=== PATIENT | female | born 1985 | race Caucasian/White ===

== ENCOUNTER → 2016-08-13 | Outpatient (CLI) | payer BC | END | disposition home or self-care (01) | LOC: C.PAPS 09:29 | PROVIDERS: ATTEND Physician Assistant | DX: Z01.419 Encounter for gynecological examination (general) (routine) without abnormal findings (principal) ==

== ENCOUNTER → 2016-09-04 | Outpatient (CLI) | payer BC ==
[2016-09-04 12:18] LABS: BASO % 0.4 %; BASO ABS # 0.03 K/uL (0-0.2); COMPLETE YES; EOS % 2.1 %; HEMATOCRIT 43.8 % (37-47); IG% 0.3 %; LYMPH % 34.7 %; LYMPH ABS # 2.35 K/uL (1.2-3.4); MEAN CELL VOLUME 88.1 fL (80-100); MEAN CORPUSCULAR HEMOGLOBIN 27.4 pg (25-34); MEAN CORPUSCULAR HGB CONC 31.1 g/dl (32-36); MEAN PLATELET VOLUME 11.4 fL (7.4-10.4); MONO % 6.2 %; NEUT % 56.3 %; PLATELET COUNT 217 K/uL (130-400); RED BLOOD COUNT 4.97 M/uL (4.2-5.4); WHITE BLOOD COUNT 6.77 K/uL (4.8-10.8)
[2016-09-04 12:23] LABS: PARTIAL THROMBOPLASTIN RATIO 1.1; PROTHROMBIN TIME (PATIENT) 10.5 SECONDS (9.0-12.0)
[2016-09-04 12:34] LABS: AST/SGOT 13 U/L (15-37); BLOOD UREA NITROGEN 11 mg/dl (7-18); BUN/CREATININE RATIO 12.1 (10-20); CALCIUM 8.6 mg/dl (8.5-10.1); CARBON DIOXIDE 25 mmol/L (21-32); CHLORIDE 108 mmol/L (98-107); CHOLESTEROL 198 mg/dl (0-200); CREATININE 0.91 mg/dl (0.60-1.20); GLUCOSE 86 mg/dl (70-99); POTASSIUM 4.2 mmol/L (3.5-5.1); SODIUM 141 mmol/L (136-145)
[2016-09-04 12:44] LABS: ALB/GLOB RATIO 1.2 (0.9-2); ALKALINE PHOSPHATASE 70 U/L (45-117); ALT/SGPT 22 U/L (12-78); CHOLESTEROL/HDL RATIO 3.9; HDL CHOLESTEROL 51 mg/dl; LDL CHOLESTEROL CALCULATED 130 mg/dl; TRIGLYCERIDES 87 mg/dl (0-150); VERY LOW DENSITY LIPOPROT CALC 17 mg/dl
[2016-09-04 12:50] LABS: ESTIMATED AVERAGE GLUCOSE 117 mg/dl; HA1C FLAG Normal (Normal)
[2016-09-04 14:58] LABS: LYME DISEASE AB IGG NEG (NEG)
[2016-09-04 15:01] LABS: LYME DISEASE AB IGM NEG (NEG)
== END | disposition home or self-care (01) ==
LOC: C.LAB1850 10:35
PROVIDERS: ATTEND Internal Medicine
DX: Z00.00 Encounter for general adult medical examination without abnormal findings (principal); R53.83 Other fatigue; R23.8 Other skin changes

== ENCOUNTER → 2017-02-06 | Outpatient (CLI) | payer BC ==
[2017-02-06 16:32] LABS: HEMATOCRIT 41.1 % (37-47); MEAN CELL VOLUME 88.8 fL (80-100); MEAN CORPUSCULAR HEMOGLOBIN 28.5 pg (25-34); MEAN CORPUSCULAR HGB CONC 32.1 g/dl (32-36); PLATELET COUNT 216 K/uL (130-400); RED BLOOD COUNT 4.63 M/uL (4.2-5.4); WHITE BLOOD COUNT 9.48 K/uL (4.8-10.8)
[2017-02-07 07:02] LABS: ESTIMATED AVERAGE GLUCOSE 114 mg/dl; HA1C FLAG Normal (Normal)
== END | disposition home or self-care (01) ==
LOC: C.LAB1850 15:25
PROVIDERS: ATTEND Internal Medicine
DX: Z00.00 Encounter for general adult medical examination without abnormal findings (principal); R53.83 Other fatigue

== ENCOUNTER 2017-06-12 17:28 | Emergency (ER) | payer BC ==
[~2017-06-12] VITALS: Ht 167.6 cm; Wt 96.3 kg
[2017-06-12 17:40] VITALS: TEMP 36.9
[2017-06-12 18:32] VITALS: Ht 167.6 cm; Wt 96.3 kg
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
[2017-06-12 18:57] LABS: PTT PATIENT 28.3 SECONDS (21.0-31.0)
[2017-06-12 18:58] LABS: BASO % 0.3 %; BASO ABS # 0.02 K/uL (0-0.2); EOS % 1.8 %; EOS ABS # 0.14 K/uL (0-0.5); HEMATOCRIT 42.6 % (37-47); HEMOGLOBIN 14.2 g/dL (12.0-16.0); IG# 0.02 K/uL (0.00-0.02); LYMPH % 31.2 %; LYMPH ABS # 2.46 K/uL (1.2-3.4); MEAN CELL VOLUME 85.9 fL (80-100); MEAN CORPUSCULAR HEMOGLOBIN 28.6 pg (25-34); MEAN CORPUSCULAR HGB CONC 33.3 g/dl (32-36); MEAN PLATELET VOLUME 10.6 fL (7.4-10.4); MONO % 5.1 %; NEUT % 61.3 %; NEUT ABS # 4.85 K/uL (1.4-6.5); PLATELET COUNT 208 K/uL (130-400); RED CELL DISTRIBUTION WIDTH CV 13.2 % (11.5-14.5); RED CELL DISTRIBUTION WIDTH SD 41.3 fL (36.4-46.3); WHITE BLOOD COUNT 7.89 K/uL (4.8-10.8)
[2017-06-12 19:16] LABS: ALT/SGPT 24 U/L (12-78); AST/SGOT 15 U/L (15-37); BLOOD UREA NITROGEN 12 mg/dl (7-18); CALCIUM 8.9 mg/dl (8.5-10.1); CARBON DIOXIDE 26 mmol/L (21-32); CREATININE 0.98 mg/dl (0.60-1.20); GLUCOSE 89 mg/dl (70-99); LIPASE 164 U/L (73-393); POTASSIUM 3.6 mmol/L (3.5-5.1); SODIUM 137 mmol/L (136-145)
[2017-06-12 19:27] LABS: ALKALINE PHOSPHATASE 74 U/L (45-117); TOTAL PROTEIN 7.7 gm/dl (6.4-8.2)
--- NOTE | 2017-06-12 19:33 | DIAGNOSTIC IMAGING REPORT ---
HEAD WITHOUT CONTRAST (CT) CLINICAL HISTORY: 32 years-old Female presenting with numb/tingling hands/feet. TECHNIQUE: Multidetector CT imaging of the head was performed without the use of intravenous contrast. IV contrast: None. A dose lowering technique was used consistent with the principles of ALARA (as low as reasonably achievable). COMPARISON: None. CT DOSE (mGy.cm): The estimated cumulative dose is 537.48 mGy.cm. FINDINGS: Marine Equipment Preservation Inspector topogram: Unremarkable. Ventricles and sulci normal in size. Brain parenchyma normal in appearance with preserved martinez-white differentiation. No mass effect or midline shift. No hemorrhage or acute territorial infarct. No extra-axial fluid collection. Paranasal sinuses and mastoid air cells clear. Calvarium intact. IMPRESSION: 1. No acute intracranial abnormality. Electronically signed by: Joshua Lopez M.D. 06/12/2017 7:32 PM Dictated Date/Time: 06/12/2017 7:31 PM
--- NOTE | 2017-06-12 19:39 | DIAGNOSTIC IMAGING REPORT ---
CHEST ONE VIEW PORTABLE CLINICAL HISTORY: 32 years-old Female presenting with EVALUATE WEAKNESS. TECHNIQUE: Portable upright AP view of the chest was obtained. COMPARISON: None. FINDINGS: Cardiomediastinal silhouette normal. No focal opacity. No large effusion or pneumothorax. Osseous structures normal. Upper abdomen normal. IMPRESSION: 1. No acute cardiopulmonary disease. Electronically signed by: Joshua Lopez M.D. 06/12/2017 7:38 PM Dictated Date/Time: 06/12/2017 7:38 PM
[2017-06-12 19:43] VITALS: BP 121/69; PULSE 74; O2SAT 99
[2017-06-12 19:45] VITALS: O2SAT 99
== END 2017-06-12 20:05 | disposition home or self-care (01) ==
LOC: C.EDB 17:29 → C.EDA 20:05
DX: R20.0 Anesthesia of skin (principal); R20.2 Paresthesia of skin; F41.9 Anxiety disorder, unspecified; Z82.0 Family history of epilepsy and other diseases of the nervous system

== ENCOUNTER → 2017-07-15 | Outpatient (CLI) | payer BC | END | disposition home or self-care (01) | LOC: C.LAB1850 16:27 | PROVIDERS: ATTEND Internal Medicine | DX: E03.9 Hypothyroidism, unspecified (principal) ==

== ENCOUNTER → 2017-07-17 | Outpatient (CLI) | payer BC ==
[2017-07-17 17:24] LABS: BASO % 0.3 %; BASO ABS # 0.02 K/uL (0-0.2); EOS % 1.4 %; HEMATOCRIT 41.3 % (37-47); HEMOGLOBIN 13.5 g/dL (12.0-16.0); IG# 0.02 K/uL (0.00-0.02); LYMPH % 30.3 %; LYMPH ABS # 2.19 K/uL (1.2-3.4); MEAN CELL VOLUME 86.8 fL (80-100); MEAN CORPUSCULAR HEMOGLOBIN 28.4 pg (25-34); MEAN CORPUSCULAR HGB CONC 32.7 g/dl (32-36); MEAN PLATELET VOLUME 10.3 fL (7.4-10.4); MONO % 6.2 %; MONO ABS # 0.45 K/uL (0.11-0.59); NEUT % 61.5 %; NEUT ABS # 4.44 K/uL (1.4-6.5); PLATELET COUNT 227 K/uL (130-400); RED CELL DISTRIBUTION WIDTH CV 13.1 % (11.5-14.5); WHITE BLOOD COUNT 7.22 K/uL (4.8-10.8)
== END | disposition home or self-care (01) ==
LOC: C.LAB1850 16:11
PROVIDERS: ATTEND Obstetrics & Gynecology
DX: N92.0 Excessive and frequent menstruation with regular cycle (principal)

== ENCOUNTER 2019-05-06 07:30 | Inpatient (IN) ==
--- NOTE | 2019-05-05 17:59 | History and Physical Report ---
DATE OF ADMISSION: 05/06/2019 PREOPERATIVE DIAGNOSES: 1. Intrauterine at 39 and 6/7 weeks. 2. History of previous section for failure to progress, desires repeat. HISTORY: The patient is a 34-year-old white female 3, para 1-0-1-1 who presents to labor and delivery for elective repeat section. Her last was complicated by a very difficult section in 2015 at 42 weeks of labor to deliver a 9 pound 7 ounce male infant and this was in [place]. The baby it sounds like was wedged into the pelvis. The operative report was reviewed and it was a low transverse incision with a right-sided cervical extension. She had a long labor and she does not desire to repeat any of that. She actually had to go to sleep because of inappropriate anesthetic. The has essentially been uncomplicated. She did have a tick bite in April. She has been having twice weekly NSTs, which have been good. Her blood pressures have been fine. PAST OB AND BENEFITS COUNSELOR HISTORY: The patient has a history of a miscarriage and a history of a previous as noted above. ALLERGIES: CODEINE. MEDICATIONS: Calcium carbonate, levothyroxine and vitamin. PAST MEDICAL HISTORY: Anxiety, gastroesophageal reflux, history of a breast lump that was benign, history of a cardiac murmur noncontributory, history of hypothyroidism and history of recent tick bite. PAST SURGICAL HISTORY: delivery, a left lumpectomy, wisdom teeth removal and colonoscopy. FAMILY HISTORY: Noncontributory. GYNECOLOGIC HISTORY: Denies history of sexually transmitted diseases or BENEFITS COUNSELOR issues. PHYSICAL EXAMINATION: GENERAL: This is a well-developed, well-nourished white female in no acute distress. Weight is 233 pounds. VITAL SIGNS: Blood pressure 110/84. NECK: Supple without thyromegaly or lymphadenopathy. CHEST: Clear to auscultation bilaterally. CARDIOVASCULAR: Regular rate and rhythm without murmurs, gallops or rubs. BACK: Without costovertebral angle tenderness. ABDOMEN: Soft, gravid and nontender. EXTREMITIES: Show some trace edema, but are otherwise benign. LABORATORY DATA: Blood type O positive, antibody negative. Chlamydia and gonorrhea negative, rubella immune, RPR nonreactive, hepatitis B negative, HIV negative. Declined CF and SMA. Low risk panorama. Declined MSAFP, GTT x2 was normal, GBS negative. ASSESSMENT: Rody is a 34-year-old white female 3, para 1-0-1-1 with a history of failure to progress section requiring general anesthesia because of poor anesthetic and a cervical extension on the operative report. She presents for repeat section. The risks of the section were discussed with the patient including the risks of anesthesia, bleeding requiring transfusion, infection, poor wound healing, damage to surrounding structures including bowel, bladder, vessels, nerves and ureters with need for further surgery, hospitalization or intervention. We discussed the risk of any surgery including heart attack, blood clot, stroke or . Consent was reviewed and signed and procedure is planned for the morning of 05/06/2019.
[~2019-05-06 07:30] MED LIST: CEFAZOLIN 3000MG 65 ML IV SCH; CITRIC ACID/SODIUM CITRATE 15 ML UDC PO SCH
[2019-05-06] MEDS ORDERED: LACTATED RINGER'S 1,000 ML IV SCH ×2 (09:45→15:58)
[2019-05-06 09:46] LABS: Basophils # (auto) 0.02 K/uL (0-0.2); Basophils % (auto) 0.3 %; Eosinophils # (auto) 0.07 K/uL (0-0.5); Hematocrit (blood only) 36.2 % (37-47); Hemoglobin 11.1 g/dL (12.0-16.0); Immature Granulocytes # (auto) 0.04 K/uL (0.00-0.02); Immature Granulocytes % (auto) 0.6 %; Lymphocytes # (auto) 1.61 K/uL (1.2-3.4); Lymphocytes % (auto) 22.8 %; Mean Corpuscular Hemoglobin 25.2 pg (25-34); Mean Corpuscular Volume 82.3 fL (80-100); Mean Platelet Volume 11.6 fL (7.4-10.4); Monocytes # (auto) 0.36 K/uL (0.11-0.59); Monocytes % (auto) 5.1 %; Neutrophils # (auto) 4.95 K/uL (1.4-6.5); Neutrophils % (auto) 70.2 %; Platelet Count 167 K/uL (130-400); RDW Coefficient of Variation 15.9 % (11.5-14.5); RDW Standard Deviation 47.5 fL (36.4-46.3); White Blood Count 7.05 K/uL (4.8-10.8)
[2019-05-06 09:58] LABS: Mean Corpuscular Hgb Conc 30.7 g/dL (32-36)
[2019-05-06] MEDS ORDERED: MoRPHine SULFATE PF 1 MG/ML 10 ML AMP/VIAL ONE (11:12)
[2019-05-06] MEDS ORDERED: fentaNYL citrate 100 MCG/2 ML VIAL ONE (11:12)
--- NOTE | 2019-05-06 11:56 | Anesthesiology Consultation ---
Date of Service May 06, 2019 Assessment & Plan (1) Encounter for pre-operative examination: Chart Review Chart Review: Acceptable Risk for Surgery and Patient NOT seen in Pre Admission Testing Consults Requested none ASA ASA2 Proposed Anesthesia Anesthesia Type: Spinal (intrathecal narcotics) Risk / Benefits Reviewed With: PT / POA / Parent / Guardian, Accepts Plan and Informed Consent Obtained History Surgery Operation Date: 05/06/19 11:15 Proposed Procedures p Section in LD - Patricia Hanna MD, FACOG Height/Weight Height: 5 ft 6 in Weight: 103.419 kg Allergies Allergy/AdvReac Type Severity Reaction Status Date / Time codeine AdvReac Severe Gastrointestinal Verified 05/06/19 09:45 [From Tylenol-Codeine] Upset Medications Home Medications Medication Instructions Recorded Confirmed Last Taken levothyroxine 50 mcg tablet See Rx Instructions PO QAM #108 tab 03/30/19 05/06/19 05/05/19 08:00 [id number]-FA 1 tab PO QDL 04/22/19 05/06/19 05/04/19 08:00 [] calcium carbonate [Tums] 200 mg PO DAILY PRN 04/22/19 05/05/19 Unknown Past Medical History Medical History Anemia Anxiety no meds GERD (gastroesophageal reflux disease) no meds History of breast lump Hx of cardiac murmur followed by cardiology Hypothyroidism levothyroxine daily Tick bite RECENT TICK BITE - PER PT BEING MONITORED UNTIL ABLE TO HAVE TITER TESTING Exercise / Class Metabolic Activity II 4-5 Yardwork/Stairs/Walk up hill Past Family History Family History Grandmother (Paternal) Breast cancer Grandmother (Maternal) Diabetes Thyroid disease Grandfather (Maternal) Dyslipidemia Hypertension Mother Dyslipidemia Kidney stones Hypertension Brother Kidney stones Sister Ovarian cyst Past Surgical History Surgical History History of anesthesia reaction INCIDENT OCCURRED IN [place] - HAD ISSUES WITH EPIDURAL - STATES FELT IT IN CHEST AND THINKS REVERSED IT - THEN FLET SURGEON CUTTING - THEN INDUCED WITH GENERAL History of delivery (Inactive) 2016 Failure to progress History of lumpectomy LEFT BREAST History of wisdom tooth extraction Hx of colonoscopy Past Anesthesia History No Hx of Anesthesia Complications and No Family Hx of Anesthesia Complications History of PONV No Hx of PONV and No Hx of Motion Sickness Social History Smoking Status: Never smoker Hx Alcohol Use: No Hx Substance Use: No substance use type: does not use Physical Exam Vital Signs Last Vital Signs Temp 37.1 C 05/06/19 09:47 Pulse 76 05/06/19 09:53 Resp 16 05/06/19 09:47 BP 118/79 05/06/19 09:53 ENMT Mouth: no dentition abnormality Thyromental Distance: > or= 3.5 Finger Breadths Mallampati Class: II Neck normal visual inspection Respiratory normal respiratory effort Auscultation: lungs clear to auscultation bilaterally Cardiovascular Rate/Rhythm: regular rate and regular rhythm Psychiatric Orientation: alert Testing Laboratory Results 05/06/19 09:33 Blood Type O Positive 05/06/19 09:28 Antibody Screen NEGATIVE 05/06/19 09:28
[2019-05-06] MEDS ORDERED: KETOROLAC 30 MG/ML VIAL ONE (13:20)
[2019-05-06] MEDS ORDERED: OXYTOCIN 10 UNITS/ML VIAL ONE (13:20)
[2019-05-06] MEDS ORDERED: ONDANSETRON INJ 2 MG/ML 2 ML VIAL ONE (13:20)
[2019-05-06] MEDS ORDERED: PHENYLEPHRINE 100MCG/ML 5ML SYR ONE (13:20)
[2019-05-06] MEDS ORDERED: NALOXONE HCL 0.08 MG in SYRINGE 1.8 ML IV PRN (14:07)
[2019-05-06] MEDS ORDERED: DiphenhydrAMINE HCL 50 MG/ML VIAL IV PRN (14:07)
[2019-05-06] MEDS ORDERED: ePHEDrine sulfate 50 MG/ML AMP IV PRN (14:07)
[2019-05-06] MEDS ORDERED: NALOXONE HCL 0.4 MG/1 ML VIAL/CARP IV PRN (14:07)
[2019-05-06] MEDS ORDERED: LACTATED RINGER'S 500 ML IV PRN (14:07)
[2019-05-06] MEDS ORDERED: MoRPHine SULFATE 2 MG/ML CARP IV PRN (14:07)
[2019-05-06] MEDS ORDERED: NALOXONE HCL 1 MG in SODIUM CHLORIDE 0.9% 1000ML 1,000 ML IV PRN (14:07)
[2019-05-06] MEDS ORDERED: NALBUPHINE HCL INJ 10 MG/ML AMP IV PRN (14:07)
[2019-05-06] MEDS ORDERED: HYDROmorphone INJ 0.5 MG/0.5 ML SYR IV PRN (14:07)
[2019-05-06] MEDS ORDERED: MoRPHine SULFATE PF 1 MG/ML 10 ML AMP/VIAL INT SPINAL ONE (14:07)
--- NOTE | 2019-05-06 14:09 | Anesthesiology Progress Note ---
Date of Service May 06, 2019 Anesthesia Post Procedure Vital Signs Vital Signs: Temp Pulse Resp BP Pulse Ox 05/06/19 14:07 64 100 05/06/19 14:03 72 113/63 05/06/19 14:02 70 99 05/06/19 09:53 76 118/79 05/06/19 09:47 37.1 C 16 Transfer of Care Handoff Completed per policy Notes Mental Status: alert / awake / arousable Nausea / Vomiting: adequately controlled Pain: adequately controlled Airway Patency, RR, SpO2: stable & adequate BP & HR: stable & adequate Hydration State: stable & adequate Neuraxial Anesthesia: was administered and sensory block is resolving Anesthetic Complications: no major complications apparent and Pt Satisfied with anesthetic care
[2019-05-06] MEDS ORDERED: SODIUM CHLORIDE 0.9% 1000ML 1,000 ML IV SCH (14:15)
[2019-05-06] MEDS ORDERED: DC INTRASPINAL MORPHINE SCH (14:15)
[2019-05-06] MEDS ORDERED: NO NARCOTICS OR SEDATIVES SCH (15:47)
[2019-05-06] MEDS ORDERED: DIPHTHERIA/TETANUS/PERTUSSIS 0.5 ML SYR/VIAL IM ONE (15:58)
[2019-05-06] MEDS ORDERED: MAGNESIUM HYDROXIDE SUSP 30 ML UDC PO PRN (15:58)
[2019-05-06] MEDS ORDERED: HYDROCORTISONE ACETATE 25 MG SUPP PR PRN (15:58)
[2019-05-06] MEDS ORDERED: SENNA 8.6 MG TAB PO PRN (15:58)
[2019-05-06] MEDS ORDERED: SUPERCREAM 0.870% 15 GM JAR EXT PRN (15:58)
[2019-05-06] MEDS ORDERED: BENZOCAINE 20% AER SPR 82.5 GM CAN EXT PRN (15:58)
[2019-05-06] MEDS: OXYTOCIN 20 UNITS in LACTATED RINGER'S 1,000 ML IV SCH (16:45)
--- NOTE | 2019-05-06 17:34 | Operative Report ---
DATE OF OPERATION: 05/06/2019 PREOPERATIVE DIAGNOSES: 1. Intrauterine at 39+ weeks. 2. History of previous section for failure to descend and failure to progress with right cervical extension. 3. Desires repeat section. POSTOPERATIVE DIAGNOSES: 1. Intrauterine at 39+ weeks. 2. History of previous section for failure to descend and failure to progress with right cervical extension. 3. Desires repeat section. PROCEDURE: Repeat lower transverse section. SURGEON: Patricia Hanna MD. VIRTUAL RECRUITER: Ned Porter MD. ANESTHESIA: Spinal. ESTIMATED BLOOD LOSS: 700 mL. FLUIDS: 1300 mL. URINE OUTPUT: 150 mL of concentrated urine drained from the bladder at the end of the procedure. INDICATIONS: Rody is a 34-year-old white female 3, para 1-0-1-1 who presents to labor and delivery for repeat section. Her last was complicated by a very difficult section in 2015 at 42 weeks to deliver a 9 pound 7 ounce male infant after a prolonged labor in [place]. There was a right cervical extension noted at the time of delivery. COMPLICATIONS: None. DRAINS: Díaz. DISPOSITION: To recovery room in stable condition. DESCRIPTION OF PROCEDURE: The patient was taken to the operating room where she was identified verbally and by bracelet. She was seated on the operating table where a spinal anesthetic was placed by Dr. Rangel. She was placed in dorsal supine position with a leftward tilt. A Díaz catheter was placed sterilely. She was prepped and draped in normal sterile fashion. Her anesthetic was tested and found to be adequate. A time-out was held, identifying correct patient, procedure, positioning, equipment and preoperative antibiotic. There were no concerns. A Pfannenstiel skin incision was made with a knife and taken down to the underlying layer of fascia with the knife and Bovie electrocautery. Bleeding was attended to with Bovie electrocautery. The fascia was incised in the midline with cautery and taken out laterally with scissors. The superior edge of the fascial incision was grasped, elevated, and the underlying layer of rectus muscle was taken off bluntly and with scissors. In a similar fashion, the inferior edge of the fascial incision was grasped, elevated and the underlying layer of rectus muscle was taken off bluntly and with scissors. There was some separation of the rectus muscles in the midline. The peritoneum was identified, grasped and entered sharply. On examination, there were some anterior abdominal wall peritoneal adhesions to the anterior uterus that were taken down bluntly with the testboard operator's hand and there was a large adhesion of the anterior fundal portion of the uterus to the anterior abdominal wall that was taken off with scissors. A bladder blade was placed. The vesicouterine peritoneum was identified, grasped with a snap, entered with scissors and taken out laterally with scissors. The bladder flap was created digitally. Hysterotomy incision was made with the knife and the uterus was then entered with a snap. The testboard operator's fingers were then placed into this and the incision was stretched cephalad and caudad. There was clear fluid on amniotomy. The testboard operator's hand was reached into the uterus. The head was delivered gently through the uterus. There was no nuchal cord. The nose and mouth were bulb suctioned and the rest of the infant was then delivered without difficulty. The cord was clamped and cut and the infant was handed off to the waiting mat man for drying and attention. Cord blood and gases were obtained. The placenta was expressed from the uterus. The uterus was exteriorized and cleared of all clot and debris with moistened laparotomy sponges. Hysterotomy incision was repaired in 2 layers, the first in a running locked layer of 0 Vicryl, the second in an imbricating layer. Several sutures were needed for hemostasis of this incision in both the right and the left corner, particularly in the right corner. These stitches were usually [id number] stitches and we used both 0 Vicryl and 0 Monocryl. We did this until hemostasis was better assured. The posterior cul-de-sac was irrigated and cleared of all clot and debris with moistened laparotomy sponges. The area of the thick adhesion on the anterior fundal uterus had some oozing, which was attended to with some cautery. The uterus was reanteriorized. There was just some slight oozing at the right corner and at the area of the adhesion. Some FloSeal was applied in all of these areas to assist with hemostasis. The rectus muscles were reapproximated with several interrupted sutures of 0 Vicryl. The fascia was reapproximated with 0 Vicryl starting at the corners and meeting in the midline. The subcuticular tissue was irrigated. Bleeding was attended to with Bovie electrocautery and the skin was closed with 4-0 subcuticular stitch. All sponge, lap and needle counts were correct x2. The patient tolerated the procedure well and was taken to recovery room in stable condition. I attest to the content of the Intraoperative Record and any orders documented therein. Any exception s are noted below.
[2019-05-06] MEDS: SIMETHICONE 80 MG CHEW PO SCH ×2 (20:32→20:39)
[2019-05-06] MEDS: DOCUSATE SODIUM 100 MG CAP PO SCH (20:39)
[2019-05-07] MEDS: OXYTOCIN 20 UNITS in LACTATED RINGER'S 1,000 ML IV SCH (00:56)
[2019-05-07] MEDS: KETOROLAC 30 MG/ML VIAL IV PRN ×2 (00:58→07:11)
--- NOTE | 2019-05-07 06:18 | Obstetrical Progress Note ---
Date of Service <Gabe Chambers MD - Last Filed: 05/07/19 07:35> May 07, 2019 Assessment & Plan <Gabe Chambers MD - Last Filed: 05/07/19 07:35> (1) S/P : POD#1 - continue routine care; remove palma today - advance diet as tolerated - encourage ambulation, and oral intake - after discharge will have follow-up in 6 weeks Subjective <Gabe Chambers MD - Last Filed: 05/07/19 07:35> Ms. Sims is a 34 y/o female ; POD #1 following delivery at 39+ weeks; doing well this morning; having increased abdominal cramping/pain; voiding into palma; tolerating liquids overnight Review of Systems Constitutional: denies fever; chills; sweats; headache Respiratory: denies shortness of breath, difficulty breathing Cardiac: denies chest pain; palpitations; chest pressure Breast: denies breast pain : denies dysuria Physical Exam <Gabe Chambers MD - Last Filed: 05/07/19 07:35> General: alert; oriented; no acute distress Cardiac: RRR; no m/g/r Respiratory: CTAB a/p; no wheezes/rales/rhonchi; no increased work of breathing; symmetrical chest rise; no respiratory distress Abdomen: soft; NT/ND; bowel sounds positive, incision warm/dry/intact with mild tenderness, without erythema/exudate Uterus: uterine fundus firm; palpable 2cm below umbilicus Lower extrem: no lower extremity edema or swelling; no deep calf pain; Tha's sign negative b/l Results & Data <Gabe Chambers MD - Last Filed: 05/07/19 07:35> Vital Signs (Past 12 Hours) Vital Signs Temp Pulse Pulse Resp BP Pulse Ox 05/07/19 04:30 18 96 05/07/19 03:20 36.7 C 76 18 104/59 L 96 05/07/19 02:05 18 95 05/07/19 01:10 18 95 05/07/19 00:15 18 96 05/06/19 23:50 36.8 C 88 18 112/61 96 05/06/19 23:15 18 96 05/06/19 22:00 16 97 05/06/19 21:00 16 97 03/06/20 20:00 16 98 05/06/19 19:36 36.6 C 65 16 110/70 98 05/06/19 19:00 16 96 Laboratory Results 05/06/19 05/06/19 Range/Units 09:33 09:28 WBC 7.05 (4.8-10.8) K/uL RBC 4.40 (4.2-5.4) M/uL Hgb 11.1 L (12.0-16.0) g/dL Hct 36.2 L (37-47) % MCV 82.3 (80-100) fL MCH 25.2 (25-34) pg MCHC 30.7 L (32-36) g/dL RDW Std Deviation 47.5 H (36.4-46.3) fL RDW Coeff of Ramirez 15.9 H (11.5-14.5) % Plt Count 167 (130-400) K/uL MPV 11.6 H (7.4-10.4) fL Immature Gran % (Auto) 0.6 % Neut % (Auto) 70.2 % Lymph % (Auto) 22.8 % [place] % (Auto) 5.1 % Eos % (Auto) 1.0 % Baso % (Auto) 0.3 % Immature Gran # (Auto) 0.04 H (0.00-0.02) K/uL Neut # (Auto) 4.95 (1.4-6.5) K/uL Lymph # (Auto) 1.61 (1.2-3.4) K/uL [place] # (Auto) 0.36 (0.11-0.59) K/uL Eos # (Auto) 0.07 (0-0.5) K/uL Baso # (Auto) 0.02 (0-0.2) K/uL Blood Type O Positive Antibody Screen NEGATIVE Medications Administered Current Inpatient Medications Benzocaine (Dermoplast Pain Relieving [place]) 1 appln EXT UD PRN PRN Reason: use on skin as needed Stop: 06/05/19 15:57 Bisacodyl (Dulcolax) 5 mg PO 1999 [facility] Stop: 05/07/19 20:01 Bisacodyl (Dulcolax) 10 mg MI PRN PRN PRN Reason: Constipation Stop: 06/07/19 13:49 Cocaine HCl (Supercream 0.870%) 1 gm EXT UD PRN PRN Reason: hemmorrhoidal inflammation Stop: 05/20/19 15:57 Diphenhydramine HCl (Benadryl) 25 mg IV Q6H PRN PRN Reason: pruritis Stop: 05/07/19 08:07 Diphenhydramine HCl (Benadryl Capsule) 25 mg PO QID PRN PRN Reason: Itching Stop: 06/06/19 08:07 Diphenhydramine HCl (Benadryl) 25 mg IV QID PRN PRN Reason: Itching Stop: 06/06/19 08:07 Docusate Sodium (Colace) 100 mg PO DAILY@08, [facility] Stop: 06/05/19 20:59 Last Admin: 05/06/19 20:39 Dose: 100 mg Documented by: Ephedrine Sulfate (Ephedrine Sulfate) 10 mg IV Q5M PRN PRN Reason: Hypotension Stop: 05/07/19 08:07 Ferrous Sulfate (Feosol) 325 mg PO DAILY@08 [facility] Stop: 06/06/19 07:59 Hydrocortisone (Anusol Hc) 25 mg MI BID PRN PRN Reason: Hemorrhoids Stop: 06/05/19 15:57 Hydromorphone HCl (Dilaudid) 0.5 mg IV Q4H PRN PRN Reason: Breakthrough Surgical Pain Stop: 05/07/19 08:08 Sodium Chloride (Nss 1000ml) 1,000 mls @ 15 mls/hr IV .Q24H [facility] Stop: 05/07/19 08:07 Last Admin: 05/06/19 16:59 Dose: Not Given Documented by: Naloxone HCl 1 mg/ Sodium (Chloride) 1,002.5 mls @ 50 mls/hr IV .Q20H3M PRN PRN Reason: itching or nausea Stop: 05/07/19 08:07 Lactated Ringer's (Lr) 500 mls @ 999 mls/hr IV .Q31M PRN PRN Reason: Hypotension Stop: 05/07/19 08:07 Naloxone HCl 0.08 mg/ Syringe 2 mls @ 1 mls/min IV Q30M PRN; Protocol PRN Reason: Urinary Retention Stop: 05/07/19 08:07 Lactated Ringer's (Lr) 1,000 mls @ 125 mls/hr IV .Q8H [facility] Stop: 06/05/19 15:57 Last Admin: 05/06/19 17:00 Dose: Not Given Documented by: Oxytocin 20 units/ Lactated (Ringer's) 1,002 mls @ 125 mls/hr IV .Q8H1M [facility] Stop: 05/07/19 08:16 Last Admin: 05/07/19 00:56 Dose: 125 mls/hr Documented by: Promethazine HCl 25 mg/ Sodium (Chloride) 51 mls @ 204 mls/hr IV Q4H PRN PRN Reason: Nausea And Vomiting Stop: 06/06/19 08:07 Ibuprofen (Motrin) 600 mg PO Q4H PRN PRN Reason: Pain Stop: 06/06/19 08:07 Ketorolac Tromethamine (Toradol) 30 mg IV Q6H PRN PRN Reason: Breakthrough Surgical Pain Stop: 05/07/19 08:08 Last Admin: 05/07/19 00:58 Dose: 30 mg Documented by: Ketorolac Tromethamine (Toradol) 30 mg IV Q6H PRN PRN Reason: Pain Stop: 05/12/19 08:07 Magnesium Hydroxide (Milk Of Magnesia) 30 ml PO HS PRN PRN Reason: Constipation Stop: 06/05/19 15:57 Meperidine HCl (Demerol) 50 - 75 mg IV Q4H PRN PRN Reason: Pain Stop: 05/21/19 08:07 Miscellaneous (No Narcotics Or Sedatives) 1 ea N/A UD [facility] Stop: 05/07/19 15:46 Miscellaneous Information (Dc Intraspinal Morphine) 1 ea N/A UD [facility] Stop: 05/07/19 08:07 Morphine Sulfate (Morphine Sulfate) 4 mg IV Q2H PRN PRN Reason: Breakthrough Surgical Pain Stop: 05/07/19 08:08 Nalbuphine HCl (Nubain) 5 mg IV Q10M PRN PRN Reason: itching or nausea Stop: 05/07/19 08:07 Naloxone HCl (Narcan) 0.1 mg IV UD PRN PRN Reason: Respiratory Depression Stop: 05/07/19 08:07 Ondansetron HCl (Zofran) 4 mg IV Q4H PRN PRN Reason: Nausea And Vomiting Stop: 06/06/19 08:07 Oxycodone/Acetaminophen (Percocet 5mg/325mg) 1 - 2 tab PO Q4H PRN PRN Reason: Pain Stop: 05/21/19 08:07 Prenat Multivit/[place]/Iron/Folic Ac ( Vitamin) 1 tab PO DAILY@08 [facility] Stop: 06/06/19 07:59 Sennosides (Senokot) 17.2 mg PO HS PRN PRN Reason: Constipation Stop: 06/05/19 15:57 Simethicone (Mylicon) 80 mg PO DAILY@08,13,17,21 [facility] Stop: 06/05/19 16:59 Last Admin: 05/06/19 20:39 Dose: 80 mg Documented by: <Patricia Hanna MD, FACOG - Last Filed: 05/07/19 07:48> Co-Signing Physician Notes Resident Physician Supervision Note: I interviewed and examined the patient. Discussed with Dr. Chambers and agree with findings and plan as documented in the note. Any exceptions or clarifications are listed here: Doing well. Routine POD #1 activities--palma out and void, encourage ambulation, adat, pain management. Documented By: Patricia Hanna MD, FACOG Resident Activity Tracking <Gabe Chambers MD - Last Filed: 05/07/19 07:35> Resident Involvement: Resident Care Provided Care Provided: OB Delivery
[2019-05-07 06:57] LABS: Basophils # (auto) 0.03 K/uL (0-0.2); Basophils % (auto) 0.3 %; Eosinophils # (auto) 0.08 K/uL (0-0.5); Eosinophils % (auto) 0.8 %; Hematocrit (blood only) 33.1 % (37-47); Immature Granulocytes # (auto) 0.02 K/uL (0.00-0.02); Immature Granulocytes % (auto) 0.2 %; Lymphocytes # (auto) 1.31 K/uL (1.2-3.4); Mean Corpuscular Hemoglobin 24.7 pg (25-34); Mean Corpuscular Hgb Conc 30.2 g/dL (32-36); Mean Corpuscular Volume 81.7 fL (80-100); Monocytes # (auto) 0.52 K/uL (0.11-0.59); Monocytes % (auto) 5.1 %; Neutrophils # (auto) 8.15 K/uL (1.4-6.5); Neutrophils % (auto) 80.6 %; Platelet Count 136 K/uL (130-400); RDW Coefficient of Variation 15.9 % (11.5-14.5); RDW Standard Deviation 46.9 fL (36.4-46.3); Red Blood Count 4.05 M/uL (4.2-5.4); White Blood Count 10.11 K/uL (4.8-10.8)
[2019-05-07] MEDS ORDERED: PROMETHAZINE HCL 25 MG in SODIUM CHLORIDE 0.9% 50 ML IV PRN (08:08)
[2019-05-07] MEDS ORDERED: KETOROLAC 30 MG/ML VIAL IV PRN (08:08)
[2019-05-07] MEDS ORDERED: DiphenhydrAMINE HCL 50 MG/ML VIAL IV PRN (08:08)
[2019-05-07] MEDS ORDERED: MEPERIDINE HCL 50 MG/ML CARP IV PRN (08:08)
[2019-05-07] MEDS ORDERED: ONDANSETRON INJ 2 MG/ML 2 ML VIAL IV PRN (08:08)
[2019-05-07] MEDS: SIMETHICONE 80 MG CHEW PO SCH ×4 (08:49→21:12)
[2019-05-07] MEDS: PRENATAL VITAMIN 1 TAB PO SCH (08:49)
[2019-05-07] MEDS: DOCUSATE SODIUM 100 MG CAP PO SCH ×2 (08:49→21:11)
[2019-05-07] MEDS: FERROUS SULFATE 325 MG TAB PO SCH (08:49)
[2019-05-07] MEDS: OXYCODONE/ACETAMINOPHEN 5mg/325mg TAB PO PRN ×3 (12:56→21:10)
[2019-05-07] MEDS: IBUPROFEN 600 MG TAB PO PRN ×3 (12:57→21:11)
[2019-05-07] MEDS ORDERED: bisacodyL 5 MG TABEC PO SCH (20:00)
[2019-05-08] MEDS: IBUPROFEN 600 MG TAB PO PRN ×3 (04:21→12:47)
[2019-05-08] MEDS: OXYCODONE/ACETAMINOPHEN 5mg/325mg TAB PO PRN ×3 (04:22→12:48)
[2019-05-08] MEDS ORDERED: LEVOTHYROXINE SODIUM 50 MCG TABLET PO SCH (06:30)
[2019-05-08 06:37] LABS: Hematocrit (blood only) 29.8 % (37-47)
[2019-05-08] MEDS: PRENATAL VITAMIN 1 TAB PO SCH (07:46)
[2019-05-08] MEDS: SIMETHICONE 80 MG CHEW PO SCH (07:46)
[2019-05-08] MEDS: FERROUS SULFATE 325 MG TAB PO SCH (07:46)
[2019-05-08] MEDS: DOCUSATE SODIUM 100 MG CAP PO SCH (07:46)
--- NOTE | 2019-05-08 08:25 | Obstetrical Progress Note ---
Date of Service May 08, 2019 Assessment & Plan (1) Previous delivery affecting , antepartum: - doing well - patient desires d/c - instructions/Rx given - f/u in 6 weeks Subjective Ambulation: ambulating normally Voiding: no voiding problems Feeding Type:: breast feeding Physical Exam Constitutional WD/WN, vitals as above Respiratory normal respiratory effort, lungs clear to auscultation Cardiovascular RRR, no murmur, no edema Gastrointestinal (Abdomen) Incision intact, appropriate post-op tenderness Musculoskeletal (-) deep calf tenderness Results & Data Vital Signs (Past 12 Hours) Vital Signs Temp Pulse Pulse Resp BP 05/08/19 07:42 97.9 F 20 L 75 110/70 05/08/19 00:05 97.9 F 77 16 114/69 05/07/19 19:30 98.4 F 88 18 95/61 L
--- NOTE | 2019-05-08 08:36 | Communication Note ---
Date of Service: May 08, 2019 Pt is s/p SAB for CSEC;no c/o H/A;pt is ambulating;No neurological sequelae.
[2019-05-08] MEDS ORDERED: bisacodyL 10 MG SUPP PR PRN (13:50)
[2019-05-08] MEDS ORDERED: FLOSEAL HEMOSTATIC MATRIX 10ML TOP ONE (15:05)
--- NOTE | 2019-05-09 19:18 | Discharge Summary ---
ADMISSION DIAGNOSES: 1. Intrauterine at 39 and 6/7 weeks. 2. History of previous section for failure to progress, desires repeat. PROCEDURES: Repeat lower transverse section. HISTORY OF PRESENT ILLNESS: The patient is a 34-year-old white female 3, para 1-0-1-1 who presents to labor and delivery for elective repeat section. Her last was complicated by a very difficult section in 2016 at 42 weeks. After laboring and failing to descend to deliver a 9 pound 7 ounce female infant in [place]. The baby sounds like it was wedged into the pelvis. The operative report was reviewed and it was a low transverse incision with a right-sided cervical extension. She had a very long labor and does not desire to repeat any of that. That section was actually under general anesthesia because of a poor spinal anesthetic. This has been essentially uncomplicated. For the rest of the patient's detailed history and physical, please see her history and physical. ASSESSMENT: This is a 34-year-old white female 3, para 1-0-0-1 with history of failure to progress section requiring general anesthesia because of poor anesthetic and cervical extension on the operative report. She presents for repeat section. HOSPITAL COURSE: The patient had a repeat section without difficulty to deliver a viable female . There were no complications to the section. The patient's postoperative course was uncomplicated. She tolerated a regular diet, ambulated without difficulty, voided after removal of her Díaz catheter and tolerated p.o. pain medications. She was discharged on postoperative day #2 for 6-week followup. Her postoperative H&H was 9.0 and 29.8.
== END 2019-05-08 14:30 | disposition home or self-care (01) | DRG 788 ==
LOC: EDSTATUS 07:30 → 4S1 09:21 → 4S2 17:01